=== PATIENT | male | born 1990 | race Caucasian/White ===

== ENCOUNTER 2019-02-05 09:52 | Day surgery (SDC) | payer OTHER ==
[~2019-02-05 09:52] MED LIST: BACITRACIN 50,000 UNIT VIAL ONE; BACITRACIN OINT TOP ONE; CHLORHEXIDINE GLUCONATE 15 ML UDC PO ONE; LIDOCAINE MPF 2%-EPI 1:200000 20 ML VIAL ONE
[2019-02-05] MEDS ORDERED: fentaNYL 100 MCG/2 ML VIAL IVP ONE (09:53)
[2019-02-05] MEDS ORDERED: LIDOCAINE-MPF 2% 5 ML VIAL IM ONE (09:53)
[2019-02-05] MEDS ORDERED: ACETAMINOPHEN 1,000 MG/100 ML 100 ML IV ONE (09:53)
[2019-02-05] MEDS ORDERED: ePHEDrine 50 MG/ML VIAL IVP ONE (09:53)
[2019-02-05] MEDS ORDERED: MIDAZOLAM 2 MG/2 ML VIAL IVP ONE (09:53)
[2019-02-05] MEDS ORDERED: PROPOFOL 200 MG/20 ML VIAL IVP ONE (09:53)
[2019-02-05] MEDS ORDERED: KETOROLAC 30 MG/ML VIAL IVP ONE (09:53)
[2019-02-05] MEDS ORDERED: DEXAMETHASONE 4 MG/ML VIAL IVP ONE (09:53)
[2019-02-05] MEDS ORDERED: ONDANSETRON 4 MG/2 ML VIAL IVP ONE (09:53)
[2019-02-05] MEDS ORDERED: ROCURONIUM 50 MG/5 ML VIAL IVP ONE (09:53)
[2019-02-05] MEDS ORDERED: LACTATED RINGERS 1,000 ML IV ONE ×3 (10:07→16:13)
--- NOTE | 2019-02-05 11:19 | ANESTHESIA ---
Pre-Anesthesia VS, & Labs - Diagnosis Gorlin syndrome, odontogenic keratocyst - Procedure bilateral excision of 4 benign cysts Vital Signs: Temp Pulse Resp BP Pulse Ox 36.2 C L 76 14 128/87 H 100 02/05/19 10:07 02/05/19 10:07 02/05/19 10:07 02/05/19 10:07 02/05/19 10:07 Height 6 ft 1 in Weight (kg) 97.4 kg - NPO >8 hours Home Medications and Allergies Home Medications: Ambulatory Orders No Known Home Medications 01/25/19 Active Medications Ampicillin Sodium/Sulbactam (Sodium 3 gm/ Sodium Chloride) 100 mls @ 200 mls/hr IV ONCE MARLENE Stop: 02/05/19 17:00 No Known Home Medications 01/25/19 Allergies/Adverse Reactions: Allergies Allergy/AdvReac Type Severity Reaction Status Date / Time No Known Drug Allergies Allergy Verified 01/25/19 15:24 Anes History & Medical History - Anesthetic History Anesthesia Complications: reports: No previous complications - Medical History Cardiovascular: reports: Arrhythmia (occasional PVC's), Other (small PFO) Pulmonary: reports: None Gastrointestinal: reports: None Urinary: reports: None Musculoskeletal: reports: None Endocrine/Autoimmune: reports: None Skin: reports: Other - Surgical History Dermatologic: Skin cancer surgery Exam General: Alert Dental: WNL Mouth Opening: Greater than 4 Fingerbreadths Mallampati classification: II Thyromental Distance: greater than 6 cm Respiratory: Lungs clear Cardiovascular: Regular rate, Normal S1, Normal S2 Plan Anesthesia Type: General Consent for Procedure(s) Verified and Reviewed: Yes Code Status: Attempt Resuscitation ASA classification: 2-Mild systemic disease Is this case an emergency?: No
[2019-02-05] MEDS ORDERED: OXYMETAZOLINE HCL 100 SPRAYS BOTTLE NAS ONE (12:48)
[2019-02-05] MEDS ORDERED: AMPICILLIN/SULBACTAM 3 GM in SODIUM CHLORIDE 0.9% MINIBAG 100 ML IV SCH (13:00)
[2019-02-05] MEDS ORDERED: CHLORHEXIDINE GLUCONATE 15 ML UDC PO ONE (14:43)
[2019-02-05] MEDS ORDERED: BACITRACIN ZINC OINT 14 GM TOP ONE (14:43)
[2019-02-05] MEDS ORDERED: LIDOCAINE 2%-EPI 1:100000 20 ML MDV SUBQ ONE (14:43)
[2019-02-05] MEDS ORDERED: oxyCODONE 10 MG/0.5 ML SYRINGE PO PRN (16:04)
[2019-02-05] MEDS ORDERED: MORPHINE 2 MG/ML CARPUJECT IVP PRN (16:05)
[2019-02-05] MEDS ORDERED: ONDANSETRON 4 MG/2 ML VIAL IVP PRN (16:05)
[2019-02-05] MEDS: fentaNYL 100 MCG/2 ML VIAL ONE ×2 (16:21→16:30)
[2019-02-05] MEDS ORDERED: oxyCODONE 10 MG/0.5 ML SYRINGE ONE (17:26)
--- NOTE | 2019-02-05 17:47 | OPERATIVE REPORT ---
DATE OF SERVICE: 02/05/2019 Physician: Tim Barrientos DDS PROCEDURE PERFORMED 1. Removal of 3 cm cyst from the left mandible presumably an OKC. 2. Extraction of associated teeth numbers 20, 21, 22. 3. Bone grafting reconstruction of the left mandible with a mixture of donated bone graft and bone marrow aspirate. 4. Peripheral ostectomy of the left mandible where the cyst was removed. 5. Removal of 2 small OKCs at site #28, only one of them could be biopsied and submitted for microscopic evaluation because they are so small. These cysts were actually between teeth 29 and 30 and a peripheral ostectomy was also performed in this location. 6. Bone grafting in the defect between teeth numbers 29 and 30. 7. Removal of malposed tooth #16. 8. Removal of compromised tooth #2. 9. Removal of 2.5 cm OKC from the right maxillary sinus and right maxilla with peripheral ostectomy. 10. Closure of oroantral fistula in the right maxilla with a rotational buccal fat pad graft and with Gelfoam. 11. Bone graft in site #2 and the associated bony cavity. PREOPERATIVE DIAGNOSES 1. A 3 cm odontogenic keratocyst of the left mandible. 2. Two small subcentimeter odontogenic keratocysts of the right mandible between teeth numbers 29 and 30. 3. A 2 cm odontogenic keratocyst of the right maxilla around the apex of tooth #2 and up into the sinus. 4. Compromised teeth numbers 20, 21 22 and 2. 5. Malposed tooth #16. 6. 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 POSTOPERATIVE DIAGNOSES 1. A 3 cm odontogenic keratocyst of the left mandible. 2. Two small subcentimeter odontogenic keratocysts of the right mandible between teeth numbers 29 and 30. 3. A 2 cm odontogenic keratocyst of the right maxilla around the apex of tooth #2 and up into the sinus. 4. Compromised teeth numbers 20, 21 22 and 2. 5. Malposed tooth #16. 6. 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 PRIMARY SURGEON: Tim Barrientos DDS ANESTHESIA PROVIDER: Kostas. ANESTHESIA TYPE: General anesthesia via nasoendotracheal intubation. IMPLANTS: None. SPECIMENS: The OKCs from the left mandible, the right mandible and the right maxilla were all submitted in formalin for microscopic evaluation. ESTIMATED BLOOD LOSS: 20 mL URINE OUTPUT: 550 mL IV FLUIDS: 2 liters of saline. 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 Radiographic and clinical examination was consistent with multiple OKCs, which is typical for Gorlin-Goltz syndrome, it was decided that removal of these OKCs with peripheral ostectomy and bone grafting reconstruction was indicated. The risks, benefits and alternatives of this plan were discussed including pain, swelling, bleeding, infection, damage to adjacent teeth, need for further surgery, need for further bone grafting, permanent lip numbness, oroantral fistula. Adequate time was given to answer all questions and informed consent was obtained. DESCRIPTION OF PROCEDURE: Patient was brought to the main operating room and placed in the supine position on the operating table. General anesthesia was induced by the anesthesia team and the airway was secured with a nasal endotracheal tube. The eyes were protected with Tegaderms. The pressure points were padded and checked. Patient was prepped and draped in the right anterior iliac crest for a bone marrow aspiration. A formal timeout was executed. Local anesthesia was achieved with 2% lidocaine with 1:100,000 epinephrine. A stab incision with a 15 blade was made after drawing the skin taut over the anterior iliac crest. An aspirating needle was then introduced into the iliac crest by using a mallet. Once inside the crest bone marrow could be aspirated from within the bone. After about 15 mL were drawn, hemostasis achieved with gauze and then the soft tissues were reapproximated with 5-0 Prolene suture. Broke scrub. The patient's face was then prepped and draped in the standard sterile fashion for an intraoral surgical procedure. Attention was directed to the left mandible. Local anesthesia was achieved with 10 mL of 2% lidocaine with 1:100,000 epinephrine. A crestal incision was made with mesial and distal releases and a buccal full-thickness flap was elevated. Early on in the dissection the OKC was perforated and fluid drained into the patient's mouth. It was removed with the suction. The buccal flap was further developed until the entire OKC could be appreciated. It was unroofed to allow for complete appreciation of the OKC. Tooth #22 was then removed and with it came the majority of the OKC. Teeth #20 and 21 were also removed because the roots were within the cavity left behind by the [facility]. A football bur was then used to perform a peripheral ostectomy around the entirety of the cavity, taking care to be cautious around the area of the inferior alveolar nerve. The area was then irrigated copiously and the football bur was also used to smooth out the rough edges of bone. Bone graft was mixed with the bone marrow aspirate, and this was packed into the site. The soft tissues were then reapproximated with 4-0 Vicryl suture in an interrupted and running fashion. Attention was then directed to the right mandible, a sulcular incision was made and a buccal full-thickness flap was elevated. Bone was removed. The cyst buccal to tooth #29 was obliterated. The cyst between teeth #29 and 30 was identified and curetted out. A tiny portion of this curettage was able to be submitted although it was very tiny. A vigorous specimen could not be obtained because of the frailness of the mcfarlane of the cyst. A bur was then used to complete a peripheral ostectomy of the rest of this site. This caused exposure of the root surfaces of teeth #29, #30, but the teeth were left in place because there is still bone superior to this exposure and because the patient was adamant about saving as many teeth as possible. The site was grafted with bone graft, identical to the left side and then the soft tissues were reapproximated with 4-0 Vicryl suture. Attention was directed to the right maxilla. A crestal incision with mesial and distal releases was made. A buccal full-thickness flap was elevated. As on the left hand side, purulent appearing material, but likely just keratinaceous fluid was expressed from the site. Tooth #2 had class 3 mobility and it was removed. The cyst was then curetted out largely by itself and not attached to the tooth. The cyst was removed and submitted in formalin for microscopic evaluation. The remaining bony cavity was then curetted thoroughly and peripheral ostectomy was performed. At the superior aspect of the bony cavity, only a mild peripheral ostectomy was performed because it was desired to leave the bony cavity intact to allow for bone grafting and obliteration of the oroantral fistula. However, a small perforation was appreciated. Probably about 0.5 cm in diameter where there was no bone and where the membrane had been ruptured. Gelfoam was placed over the ruptured membrane. Bone graft was packed into the site. Because of the sinus membrane perforation, it was necessary to add an additional layer of closure over the bone graft. Blunt dissection was used to expose the buccal fat pad. The fat pad prolapsed into the wound site easily. The pad was sewn to the anterior aspect of the defect with 4-0 vicryl suture. The buccal flap was then closed over the entire wound, without achieving primary closure, with 4-0 vicryl suture. The mouth was cleansed. The throat pack was removed. The eyes were rinsed. Care of the patient was returned to the anesthesia team. The patient was emerged uneventfully from anesthesia and extubated without incident. He was transferred to the PACU in stable condition. COMPLICATIONS: None. TD: 02/05/2019 16:36 [email or web address]
[2019-02-05 17:54] VITALS: BP 124/100
== END 2019-02-05 09:53 | disposition home or self-care (01) ==
LOC: SDS 09:52
PROVIDERS: ATTEND Dentist Oral and Maxillofacial Surgery
PROC: 0NBR0ZZ Excision of Maxilla, Open Approach (ICD-10-PCS; 2019-02-05)
PROC: 0NUV0KZ Supplement Left Mandible with Nonautologous Tissue Substitute, Open Approach (ICD-10-PCS; 2019-02-05)
PROC: 07DR3ZZ Extraction of Iliac Bone Marrow, Percutaneous Approach (ICD-10-PCS; 2019-02-05)
PROC: 0WQ30ZZ Repair Oral Cavity and Throat, Open Approach (ICD-10-PCS; 2019-02-05)
PROC: 09Q Ear, Nose, Sinus, Repair (ICD-10-PCS; 2019-02-05)
PROC: 0CTW0Z0 Resection of Upper Tooth, Single, Open Approach (ICD-10-PCS; 2019-02-05)
PROC: 0NBV0ZZ Excision of Left Mandible, Open Approach (ICD-10-PCS; principal; 2019-02-05 11:30)
DX: D16.4 Benign neoplasm of bones of skull and face (principal); D16.5 Benign neoplasm of lower jaw bone; M26.30 Unspecified anomaly of tooth position of fully erupted tooth or teeth; J32.0 Chronic maxillary sinusitis; Q87.89 Other specified congenital malformation syndromes, not elsewhere classified
CPT/HCPCS: 14040; 20999; 21046; 21048; 21215; 30580; 41899; 88305; A9270; J0131; J7120